=== PATIENT | male | born 2000 | race Caucasian/White ===

== ENCOUNTER 2019-12-06 18:49 | Emergency (ER) | payer OTHER ==
[~2019-12-06] VITALS: Ht 170.2 cm; Wt 69.8 kg
[2019-12-06 18:56] VITALS: BP 115/66
--- NOTE | 2019-12-06 19:22 | NUR ---
PT WALKED BACK FROM [facility] AT THIS TIME. STEADY UPON AMBULATION. NAD NOTED.
== END 2019-12-06 20:56 ==
LOC: ED 20:50
DX: L03.115 Cellulitis of right lower limb (principal)
CPT/HCPCS: 99283

== ENCOUNTER 2019-12-08 19:10 | Emergency (ER) | payer OTHER | END 2019-12-08 19:54 | LOC: ED 19:30 | DX: Z53.21 Procedure and treatment not carried out due to patient leaving prior to being seen by health care provider (principal) ==

== ENCOUNTER 2020-11-12 09:36 | Emergency (ER) | payer OTHER ==
[~2020-11-12] VITALS: Ht 170.2 cm; Wt 67.4 kg
[2020-11-12 09:37] VITALS: BP 115/60
== END 2020-11-12 11:37 | disposition home or self-care (01) ==
LOC: EDSEX 09:36 → ED 10:54
DX: S93.402A Sprain of unspecified ligament of left ankle, initial encounter (principal); W01.0XXA Fall on same level from slipping, tripping and stumbling without subsequent striking against object, initial encounter; Y93.89 Activity, other specified; Y92.89 Other specified places as the place of occurrence of the external cause; Y99.8 Other external cause status
CPT/HCPCS: 99283